=== PATIENT | female | born 1995 | race Caucasian/White ===

== ENCOUNTER 2024-11-28 18:54 | Outpatient (CLI) | payer BC, SELFPAY | END 2024-11-28 18:55 | disposition home or self-care (01) | LOC: AMB 12-02 11:51 | PROVIDERS: Visit Provider Family Medicine | DX: O26.891 Other specified pregnancy related conditions, first trimester (principal); R10.9 Unspecified abdominal pain; R11.10 Vomiting, unspecified; Z3A.08 8 weeks gestation of pregnancy | CPT/HCPCS: A0425; A0429 ==

== ENCOUNTER 2024-11-28 19:15 | Emergency (ER) | payer BC, SELFPAY ==
--- OUTSIDE RECORDS SUMMARY | 2024-11-28 19:16 | XMS_ITS | Clinical Summary ---
Author Organization [employer] [facility] [employer] [facility] Address [place], [place] [address] Care Team Providers Care Tin Recovery Worker Name Role Phone Vickie Harrison DO Primary Care Provider [phone] Allergies No known active allergies Medications multivitamin (MVI) tablet Take 1 tablet by mouth once daily. 0 06/14/2010 Active valACYclovir (VALTREX) 500 mg tabletIndicatio ns:HSV infection Take 1 tablet by mouth once daily. 90 tablet. 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/23/2018 Contraception management 02/04/2014 Immunizations Name Administration Dates Next Due COVID-19 vaccine (Moderna 100mcg/0.5mL) PF, MDV 02/07/2021,01/10/2021 DTaP 07/13/1999 HIB PRP-T (ActHIB,Hiberix) 11/26/1995,,1994,08/13 Hepatitis A (Adult) 08/26/2014 Hepatitis A (Peds) 02/04/2014 Hepatitis B (Peds) 11/26/1995,07/25/1995, 995 Human Papilloma Virus Vaccine 11/30/2008, 008,05/19/2008 Influenza, IIV4 10/23/2018 MENINGOCOCCAL VACCINE 2 VIAL 2MO-55YO (MENVEO) 02/04/2014 MMR 07/13/1999,11/26/1995 Meningococcal Vaccine (Menactra) 05/19/2008 Oral Polio Vaccine 07/13/1999, 5,1994,08/13 Td (Age >=7 Years) 10/23/2018 Tdap 04/17/2006 Typhoid (injectable) 12/22/2018 Family History Medical History Relation Name Comments Good Health Brother 3 Good Health Brother 4 Alcoholism Father Allergies Father Other Maternal Grandfather d, Cancer, age 84 Other Maternal Grandmother Romelia on's Allergies Mother Cancer-breast Mother 40s Cancer Paternal Grandfather d, lung cancer, age 50s Cancer-breast Paternal Grandmother age 58 Blood Disease No Family History Relation Name Status Comments Brother 1 Alive Brother 2 Alive Brother 3 Brother 4 Father Alive Maternal Grandfather Maternal Grandmother Mother Alive Paternal Grandfather Paternal Grandmother Social History Tobacco Use Types Packs/Day Years Used Date Smoking Tobacco: Never Smokeless Tobacco: Never Tobacco Cessation:Counseling Given: Yes Alcohol Use Standard Drinks/Week Comments Not Currently 0 (1 standard drink = 0.6 oz pur e alcohol) PHQ-2 Answer Date Recorded PHQ-2 TOTAL SCORE 0 09/30/2022 Social Connections Answer Date Recorded Frequency of Communication with Friends and Fami ly 0 03/12/2022 Financial Resource Strain Answer Date R ecorded Difficulty of Paying Living Expenses 3 03/12/2022 Difficulty of Paying Living Expenses Not on file 03/12/2022 Food Insecurity Answer Date Recorded Worried About Running Out of Food in the Last Ye ar 1 03/12/2022 Transportation Needs Answer Date Record ed Lack of Transportation (Medical) 1 03/12/2022 Housing Stability Answer Date Recorded Unable to Pay for Housing in the Last Year 1 03/12/2022 Comments No Sex and Gender Information Value Date Recorded Sex Assigned at Not on file Legal Sex Female 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 Gender Identity Not on file Sexual Orientation Not on file 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 on file Not on file Not on file Obstetrics History Para Term AB IAB SAB Ectopic Multiple Livin g Live Births 0 0 0 0 0 0 0 0 0 0 Last Filed Vital Signs Vital Sign Reading Time Taken Comments Blood Pressure 99/69 01/23/2023 9:49 AM CDT Pulse 84 01/23/2023 9:49 AM CDT Temperature 36.8 C (98.2 F) 01/23/2023 9:49 AM CDT Respiratory Rate 16 01/23/2023 9:49 AM CDT Oxygen Saturation 100% 01/23/2023 9:49 AM CDT Inhaled Oxygen Concentration - - Weight 62 kg (136 lb 11.2 oz) 01/23/2023 9:49 AM CDT Height 168.5 cm (5' 6.34) 01/23/2023 9:49 AM CD T Body Mass Index 21.84 01/23/2023 9:49 AM CDT Plan of Treatment Health Maintenance Due Date Last Done Comments HIV for age 15-65 2009 Hepatitis C screening for age 18-79 2012 Depression screening for age 12+ 09/30/2023 09/30/2022, 08/18/2020, 11/18/2018, Additional history exists Pap test for age 21-65 09/30/2023 , 09/30/2022, 09/03/2016 BMI (ht and wt on same day) for age 18+ 01/24/2024 01/23/2023, 09/30/2022, 08/18/2020, Additional history exists COVID-19 vaccine series ( season) 2024 10/16/2021, 02/07/2021, 01/10/2021 Influenza for age 9-49 06/20/2024 10/23/2018 Tetanus booster 10/23/2028 10/23/2018, 04/17/2006 Tdap Completed 04/17/2006 Pneumococcal series for age 6-49 Aged Out No longer eligible based on patient's age to complete this topic Procedures Procedure Name Priority Date/Time Associated Diagnosis Comments HPV HIGH RISK Routine 09/30/2022 9:28 AM FLIGHT TEST SUPERVISOR Cervical cancer screening from Last 3 Months or Most Recently Relevant to Health Maintenance Results * (ABNORMAL) HPV HIGH RISK (09/30/2022 9:28 AM FLIGHT TEST SUPERVISOR) TYPE 16 Negative Negative 10/02/2022 2:02 PM FLIGHT TEST SUPERVISOR [facility] TYPE 18 Negative Negative 10/02/2022 2:02 PM FLIGHT TEST SUPERVISOR [facility] OTHER HIGH RISK TYPES Positive(A) Negative 10/02/2022 2:02 PM FLIGHT TEST SUPERVISOR [facility] Other (Cervical) Non-Blood / Unknown 09/30/2022 9:28 AM FLIGHT TEST SUPERVISOR 10/01/2022 8:44 AM FLIGHT TEST SUPERVISOR Narrative [facility] - 10/02/2022 2:02 PM FLIGHT TEST SUPERVISOR Specimen is positive for the DNA of any one of, or combination of, the following high risk HPV types: 31, 33, 35, 39, 45, 51, 52, 56, 58, 59, 66, 68. HPV types 16 and 18 DNA were undetectable or below the pre-set threshold. Methodology: Summay[employer] 4800 HPV Test us Vickie Harrison DO MICROBIOLOGY Final Result [facility] [address] [place] [address], from Last 3 Months or Most Recently Relevant to Health Maintenance Insurance [facility] Care Teams Tin Recovery Worker Relationship Specialty Start Date End Date Vickie Harrison [place] [address] [place] [address] PCP - General Family Practice 03/05/22
[2024-11-28 19:20] VITALS: BP 105/77; PULSE 69; RESP 18; TEMP 36.6; O2SAT 97; BMI 23.8
--- OUTSIDE RECORDS SUMMARY | 2024-11-28 19:41 | XMS_ITS | Clinical Summary ---
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 Other (Cervical) Non-Blood / Unknown 09/30/2022 9:28 AM TABLE WORKER PACKAGER 10/01/2022 8:44 AM TABLE WORKER PACKAGER Narrative [facility] - 10/02/2022 2:02 PM TABLE WORKER PACKAGER Specimen is positive for the DNA of any one of, or combination of, the following high risk HPV types: 31, 33, 35, 39, 45, 51, 52, 56, 58, 59, 66, 68. HPV types 16 and 18 DNA were undetectable or below the pre-set threshold. Methodology: M2 [employer] 4800 HPV Test us Vickie Harrison DO MICROBIOLOGY Final Result [facility] [address] [place] [address], from Last 3 Months or Most Recently Relevant to Health Maintenance Insurance [facility] Care Teams Ob/Gyn Relationship Specialty Start Date End Date Vickie Harrison [place] [address] [place] [address] PCP - General Family Practice 03/05/22
--- NOTE | 2024-11-28 19:44 | CRLHL7_ITS ---
For Patients: As a result of the Century Cures Act, medical imaging exams and procedure reports are released immediately into your electronic medical record. You may view this report before your referring provider. If you have questions, please contact your health care provider. INDICATION: Abdominal pain. TECHNIQUE: Ultrasound OB pelvis transabdominal. Real-time briceno-scale imaging of the pelvis was performed. COMPARISON: None. FINDINGS: Intrauterine gestation: Single. heart activity (bpm): 165. [place]-rump length: 1.7 cm. Estimated ultrasound age: 8 weeks 0 days. NABEEL by ultrasound: 07/10/2025. Yolk sac: 3.4 mm. Perigestational hemorrhage: None. Ovaries and adnexa: Unremarkable. Suspicious pelvic fluid collections: None. IMPRESSION: Single viable intrauterine . No abnormalities seen. Dictated by Brenden Simmons MD @ 11/28/2024 9:08:06 PM (Electronically Signed)
[2024-11-28 20:05] LABS: Basophils Percent Auto 0.4 % (0.0-3.0); Hematocrit 36.5 % (33.0-51.0); Hemoglobin* 12.3 gm/dL (12.0-16.0); Immature Granulocytes Pct Auto 0.2 %; Lymphocytes Absolute Auto 3.24 K/uL (0.90-2.90); Lymphocytes Percent Auto 32.5 % (20-44); Mean Corpuscular HGB Conc 34 gm/dL (32-36); Mean Corpuscular Hemoglobin 30 pg (26-34); Mean Corpuscular Volume 89 fL (80-100); Monocytes Percent Auto 6.3 % (0.0-11.0); Neutrophils Absolute Auto 5.94 K/uL (1.7-7.0); Neutrophils Percent Auto 59.6 % (42.0-72.0); Platelet Count* 331 K/uL (140-440); RDW Coefficient of Variation % 12.5 % (11.5-15.5); Red Blood Count 4.11 m/uL (4.00-5.20); White Blood Count* 9.97 K/uL (4.50-11.00)
[2024-11-28 20:06] LABS: Basophils Absolute Auto 0.04 K/uL (0.00-0.30); Immature Granulocytes Abs Auto 0.02 K/uL (0.00-0.30)
[2024-11-28 20:07] LABS: Appearance Urine Clear (Clear); Bilirubin Urine Negative (Negative); Blood Urine Negative (Negative); Color Urine Yellow (Yellow); Glucose Urine Negative (Negative); Ketones Urine Negative (Negative); Leukocyte Esterase Urine Negative (Negative); Nitrite Urine Negative (Negative); Protein Urine Negative (Negative); Specific Gravity Urine 1.025 (1.000-1.030); Urobilinogen Urine 0.2 (0.2-1.0)
[2024-11-28 20:08] LABS: Slide Review Reflex No
[2024-11-28 20:15] LABS: Chloride* 101 mmol/L (96-114); Potassium* 3.5 mmol/L (3.6-5.1); Sodium* 136 mmol/L (135-149)
[2024-11-28 20:18] LABS: Anion Gap 8 mEq/L (7-15); Blood Urea Nitrogen* 7 mg/dL (5-24); Carbon Dioxide* 27 mmol/L (20-32); Creatinine* 0.4 mg/dL (0.5-1.5); Est. Creatinine Clearance* 185.05; Estimated Glomerular Filt Rate 136 ml/min
[2024-11-28 20:19] LABS: Calcium* 8.8 mg/dL (8.4-10.6); Glucose* 97 mg/dL (60-115)
--- NOTE | 2024-11-28 20:37 | ED_ITS ---
HPI - General Adult General Date Seen: 11/28/24 Chief complaint: Abdominal Pain Stated complaint: Abdominal pain Time Seen by Provider: 11/28/24 19:17 History of Present Illness HPI narrative: This is a pleasant 29-year-old female who is , currently 8 weeks , also with a history anxiety, but otherwise healthy. No previous abdominal surgical history. She presents to the ER today by EMS from home for severe abdominal pain History is obtained from the patient. She notes that she and her partner went on vacation last week to [place]. All they were in [place], stating at a bed and breakfast they both got sick with a GI illness including vomiting and diarrhea. She was quite sick 5 days ago on Friday with repetitive vomiting and greenish watery diarrhea. Her partner was so sick while in [place] that he had to go see the doctor. He apparently had an abnormal blood test and was put on antibiotics. He is doing much better since then. She notes that they came home early from their trip. About 2 days ago on Friday the diarrhea seemed just little fine she is now passing semi formed/semi firm greenish stools. Vomiting is improved. She was not running a fever for the past few days. This afternoon, at home she had sudden onset of fairly severe periumbilical and generalized episode of abdominal pain. It was quite intense and worse than any pain she had earlier this week with the diarrhea. She did not notice any vaginal bleeding or fluid leakage or tissue passage but is concerned that severe episode of pain might be representing a miscarriage. She also notes that she was not really feeling any ?uterine? cramping. The pain came in a severe wave in his tone improved down to 1/tubes over 10. She felt warm today and apparently during the painful episode she felt very hot so she took her clothes off. Her partner felt her and said that she felt palpably warm. She has not otherwise been running a fever. She was brought in by EMS. Her partner will be arriving by private car. Related Data Home Medications ?Medication ?Instructions ?Recorded ?Confirmed dextroamphetamine-amphetamine ER 1 cap PO QAM 05/27/24 05/27/24 10 mg 24hr capsule,extend release hydroxyzine HCl 50 mg tablet 50 mg PO QPM PRN insomnia 11/28/24 11/28/24 sertraline 50 mg tablet 50 mg PO DAILY 11/28/24 11/28/24 Allergies Allergy/AdvReac Type Severity Reaction Status Date / Time No Known Drug Allergies Allergy Verified 11/28/24 19:20 Exam Narrative: Exam Narrative: Constitutional: Appears well-developed and well-nourished. Alert. Conversant and provides a fairly detailed history. Non toxic. HENT: Head: Atraumatic. Nose: Nose normal. Mouth/Throat: Oral mucosa is clear and moist. no trismus. Pharynx normal. Tonsils symmetric. No tonsillar enlargement, erythema, or exudate. Eyes: Conjunctivae normal. EOM normal. Pupils equal, round, and reactive to light. No scleral icterus. Neck: Normal range of motion. Neck supple. No tracheal deviation present. Cardiovascular: Normal rate, regular rhythm. No gallop. No friction rub. No murmur heard. Symmetric radial artery pulses Pulmonary/Chest: Effort normal. No stridor. No respiratory distress. No wheezes. No rales. No rhonchi . No tenderness. Abdominal: Soft. Bowel sounds normal. No distension. No mass. Periumbilical tenderness. No rebound. No guarding. No suprapubic or right lower quadrant or left lower quadrant tenderness. No right upper quadrant tenderness. No left upward tenderness. No CVA tenderness. No hepatosplenomegaly. No Ruvalcaba sign Musculoskeletal: RUE: Normal range of motion. No tenderness. No deformity LUE: Normal range of motion. No tenderness. No deformity RLE: Normal range of motion. No edema. No tenderness. No deformity LLE: Normal range of motion. No edema. No tenderness. No deformity Neurological: Alert and oriented to person, place, and time. Normal strength. CN II-VII intact. No sensory deficit. GCS eye subscore is 4. GCS verbal subscore is 5. GCS motor subscore is 6. Normal coordination Skin: Skin is warm and dry. No rash noted. No pallor. Normal capillary refill. Psychiatric: Normal mood. Normal affect. Const: Vital Signs, click to edit/add: Vital Signs - 24 hr 11/28/24 19:20 Temperature 97.8 F Pulse Rate [Pulse Oximeter] 69 Respiratory Rate 18 Blood Pressure [Ri ght Upper Arm] 105/77 Pulse Oximetry 97 Oxygen Delivery Me thod Room Air Course Vital Signs Vital signs: Initial Vital Signs Temperature 97.8 F 11/28/24 19:20 Temperature Source Temporal Artery Scan 11/28/24 19:20 Pulse Rate 69 11/28/24 19:20 Respiratory Rate 18 11/28/24 19:20 Blood Pressure 105/77 11/28/24 19:20 Blood Pressure Mean 86 11/28/24 19:20 Blood Pressure Position Sitting 11/28/24 19:20 Pulse Oximetry 97 11/28/24 19:20 Oxygen Delivery Method Room Air 11/28/24 19:20 Vital Signs Temperature 97.8 F 11/28/24 19:20 Pulse Rate 69 11/28/24 19:20 Respiratory Rate 18 11/28/24 19:20 Blood Pressure 105/77 11/28/24 19:20 Pulse Oximetry 97 11/28/24 19:20 Oxygen Delivery Method Room Air 11/28/24 19:20 Temperature 97.8 F 11/28/24 19:20 Pulse Rate 69 11/28/24 19:20 Respiratory Rate 18 11/28/24 19:20 Blood Pressure 105/77 11/28/24 19:20 Pulse Oximetry 97 11/28/24 19:20 Oxygen Delivery Method Room Air 11/28/24 19:20 Medical Decision Making MDM Narrative Medical decision making narrative: This female patient presents for evaluation of an episode of severe generalized abdominal pain. She has had a recent GI illness that she contracted will traveling in [place] but overall her diarrhea and vomiting have been better for the past couple of days. She is also currently 8 weeks .. I considered a broad differential including ectopic , ovarian cyst, UTI, pyelonephritis, subchorionic hemorrhage, uterine bleeding, active miscarriage, constipation, etc. Non gynecologic causes considered included , gas pain, colitis, complication of GI infection appendicitis, cholecystitis, volvulus, intraabdominal abscess, among others. In this patient, there are no signs of serious etiologies of abdominal pain. The workup here shows an appropriately elevated quant. She is Rh positive. Pelvic ultrasound is reassuring and confirms a live IUP with size consistent with her LMP.. There is no subchorionic hemorrhage. At this point, patient is hemodynamically stable, hemoglobin is reassuring, and bleeding is not predicted to become life threatening. Plan is home, close follow-up with OB, threatened miscarriage precautions, and return to ED for worsening pain, heavy vaginal bleeding (more than 1 pad soaked every hour). Questions were answered. With her recent diarrhea and travel to [place], consider bacterial enteritis. However the diarrhea is actually been more solid for the past couple days. I had ordered a stool culture but she was not able to provided IS wrist simple here in the ER. Overall her severe wave of pain came and went and was improved while she was here in the ER. She is not requiring pain meds. At this point I do not think she needs advanced imaging with CT given low suspicion for appendicitis, colitis or other surgical cause of pain and the potential risk of radiation with her 1st trimester . Patient and her family agree. Plan will be watchful waiting at home. Return to the ER with worsening pain, fever, worsening diarrhea, or any other concerns. Otherwise recheck with PCP within 24-48 hours. Lab Data Labs: Lab Results 11/28/24 11/28/24 Range/Units 19:50 19:55 WBC 9.97 (4.50-11.00) K/uL RBC 4.11 (4.00-5.20) m/uL Hgb 12.3 (12.0-16.0) gm/dL Hct 36.5 (33.0-51.0) % MCV 89 (80-100) fL MCH 30 (26-34) pg MCHC 34 (32-36) gm/dL RDW Coeff of Jay 12.5 (11.5-15.5) % Plt Count 331 (140-440) K/uL Neut % (Auto) 59.6 (42.0-72.0) % Lymph % (Auto) 32.5 (20-44) % [place] % (Auto) 6.3 (0.0-11.0) % Eos % (Auto) 1.0 (0.0-7.0) % Baso % (Auto) 0.4 (0.0-3.0) % Neut # (Auto) 5.94 (1.7-7.0) K/uL Lymph # (Auto) 3.24 H (0.90-2.90) K/uL [place] # (Auto) 0.60 (0.00-0.90) K/UL Eos # (Auto) 0.10 (0.00-0.50) K/uL Baso # (Auto) 0.04 (0.00-0.30) K/uL Abs Immat Gran (auto) 0.02 (0.00-0.30) K/uL Imm/Tot Granulo (auto) 0.2 % Sodium 136 (135-149) mmol/L Potassium 3.5 L (3.6-5.1) mmol/L Chloride 101 (96-114) mmol/L Carbon Dioxide 27 (20-32) mmol/L Anion Gap 8 (7-15) mEq/L BUN 7 (5-24) mg/dL Creatinine 0.4 L (0.5-1.5) mg/dL Estimated Creat Clear 185.05 Estimated GFR 136 ml/min Glucose 97 (60-115) mg/dL Calcium 8.8 (8.4-10.6) mg/dL HCG, Quant 356018.00 mIU/mL Urine Color Yellow (Yellow) Urine Appearance Clear (Clear) Urine pH 7.0 (5.0-8.5) Ur Specific [place] 1.025 (1.000-1.030) Urine Protein Negative (Negative) Urine Glucose (UA) Negative (Negative) Urine Ketones Negative (Negative) Urine Blood Negative (Negative) Urine Nitrite Negative (Negative) Urine Bilirubin Negative (Negative) Urine Urobilinogen 0.2 (0.2-1.0) Ur Leukocyte Esterase Negative (Negative) Urine RBC 0-2 (0-2) Urine WBC 0-2 (0-5) Ur Squamous Epith Cells Few (None-Few) Urine Bacteria Few A (None) Blood Type A Positive Imaging Data US pelvic: Attestation: I have reviewed the pertinent imaging results. Radiologist's impression: IMPRESSION: Single viable intrauterine . No abnormalities seen. Discharge Plan Discharge Clinical Impression: Abdominal pain Patient Disposition: Home, Self-Care Condition: Stable Instructions: Abdominal Pain in (ED) Additional Instructions: As we discussed, please come back to the ER if you have more episodes of severe pain or any other concerning symptoms such as fever, uncontrolled vomiting, bloody or mucousy stool, worsening diarrhea. Please recheck with your regular doctor within 24-48 hours (or come back to the ER) unless you are completely improved. If you get worse, come back to the ER right away You can use Tylenol for mild pain. Drink plenty fluids and stay hydrated. Prescriptions: No Action dextroamphetamine-amphetamine 10 mg capsule,extended release 24hr 1 cap PO QAM hydroxyzine HCl 50 mg tablet 50 mg PO QPM PRN (Reason: insomnia) sertraline 50 mg tablet 50 mg PO DAILY Follow Up/Referrals: Provider,Not a Local [Primary Care Provider] - Stand Alone Forms: [employer] Info Instructions
[2024-11-28 20:45] LABS: Bacteria Urine Few; RBC Urine 0-2 (0-2); Squamous Epithelial Cell Urine Few (None-Few); WBC Urine 0-2 (0-5)
== END 2024-11-28 21:52 | disposition home or self-care (01) ==
PROVIDERS: Emergency Provider Emergency Medicine
DX: R10.9 Unspecified abdominal pain (principal); Z3A.08 8 weeks gestation of pregnancy
CPT/HCPCS: 36415; 76801; 80048; 81001; 84702; 85025; 86850; 86900; 86901; 87045; 87046; 87086; 87427; 99283

== ENCOUNTER 2024-12-10 13:46 | Outpatient (CLI) | payer BC, SELFPAY ==
--- NOTE | 2024-12-10 14:00 | CRLHL7_ITS ---
For Patients: As a result of the Cures Act, medical imaging exams and procedure reports are released immediately into your electronic medical record. You may view this report before your referring provider. If you have questions, please contact your health care provider. INDICATION: f/u viability, previous ER visit for abdominal pain/food poisoning COMPARISON: 11/28/2024 TECHNIQUE: Real-time briceno-scale imaging of the pelvis was performed. Transabdominal. FINDINGS: Sonographic imaging demonstrates a single living intrauterine gestation. The embryo demonstrates a regular cardiac rate measuring 159 beats per minute. The embryo`s crown-rump length measurement of 2.8 cm corresponds to a gestational age of 9 weeks 4 days with a sonographic due date of 07/11/2025. There is a normal-appearing yolk sac. There are no gross abnormalities noted within the embryo at this early state of development. The gestational sac has a normal appearance. There is no evidence of a perigestational hemorrhage. The amount of fluid within the sac appears appropriate for gestational age. The cervix is closed. The myometrium appears normal. The ovaries are of normal size. Corpus luteal cyst right ovary. There are no suspicious fluid collections noted in the cul-de-sac. IMPRESSION: Normal first trimester OB ultrasound exam. Gestational age calculated at 9 weeks 4 days with a sonographic due date of 07/11/2025. Dictated by Javon La MD @ 12/12/2024 6:53:45 AM (Electronically Signed)
== END 2024-12-10 13:47 | disposition home or self-care (01) ==
LOC: US 13:46
PROVIDERS: Visit Provider Advanced Practice Midwife
DX: Z34.91 Encounter for supervision of normal pregnancy, unspecified, first trimester (principal); Z3A.09 9 weeks gestation of pregnancy
CPT/HCPCS: 76801

== ENCOUNTER 2024-12-10 15:40 | Outpatient (CLI) | payer BC, SELFPAY | END 2024-12-10 15:41 | disposition home or self-care (01) | PROVIDERS: Visit Provider Advanced Practice Midwife | DX: Z34.01 Encounter for supervision of normal first pregnancy, first trimester (principal); Z67.10 Type A blood, Rh positive | CPT/HCPCS: 83020; 83021; 85660; 86592; 86703; 86704; 86706; 86762; 86787; 86803; 86850; 86900; 86901; 87086; 87340 ==

== ENCOUNTER 2025-01-04 14:24 | Outpatient (CLI) | payer BC, SELFPAY ==
[2025-01-04 20:16] LABS: Chlamydia DNA Amplified* NOT DETECTED (No Detected); GC DNA Amplified* NOT DETECTED (No Detected)
[2025-01-06 14:46] LABS: HPV Source Cervical; HPV, High Risk by TMA Not Detected
== END 2025-01-04 14:25 | disposition home or self-care (01) ==
PROVIDERS: Visit Provider Advanced Practice Midwife
DX: Z34.01 Encounter for supervision of normal first pregnancy, first trimester (principal)
CPT/HCPCS: 87491; 87591; 87624; 87625; 88141; 88142

== ENCOUNTER 2025-02-23 09:07 | Outpatient (CLI) | payer BC, SELFPAY | END 2025-02-23 09:08 | disposition home or self-care (01) | LOC: US 09:07 | PROVIDERS: Visit Provider Advanced Practice Midwife | DX: O09.892 Supervision of other high risk pregnancies, second trimester (principal); Z82.79 Family history of other congenital malformations, deformations and chromosomal abnormalities; Z3A.19 19 weeks gestation of pregnancy | CPT/HCPCS: 76811 ==

== ENCOUNTER 2025-04-25 12:33 | Outpatient (CLI) | payer BC, SELFPAY | END 2025-04-25 12:34 | disposition home or self-care (01) | LOC: NFLDREF 04-28 02:24 | PROVIDERS: Visit Provider Advanced Practice Midwife | DX: Z34.93 Encounter for supervision of normal pregnancy, unspecified, third trimester (principal); Z3A.28 28 weeks gestation of pregnancy | CPT/HCPCS: 86592 ==

== ENCOUNTER 2025-06-21 03:08 | Inpatient (IN) | payer BC, SELFPAY ==
[2025-06-21] VITALS (66 sets, daily range): BP systolic 82–145; BP diastolic 43–86; PULSE 61–214; RESP 16–18; TEMP 36.3–37.2; O2SAT 89–100
[2025-06-21 02:42] LABS: Amnisure Rom* POSITIVE
--- NOTE | 2025-06-21 03:11 | P.LDBA_ITS ---
Subjective History of Present Illness Narrative: Patient is being admitted to Labor and Delivery for []. She is a 30 year old at weeks gestation. Her full history and physical was dictated by [] on []. Please see this for details. [] Specific Issues/Plans Beau-partner, it's a boy. 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 # FOB with bicuspid aortic valve. Had heart surgery at age 11. FOB's father also had this condition Will have level 2 US in [place]-normal echo recommended: normal findings on 04/06/25 # ADHD, anxiety and depression. On hydroxyzine and sertraline. Stopped Adderall for ADHD with +UPT. # Hx genital herpes. Prophylaxis at 36 wks. Rx sent, verify she has started at 36 week visit. Ultrasound: 02/24/2025 Level II Anatomy Scan with MFM Impression: 1. Christiansen at 19w6d gestational age LMP c/w 8 week US. 2. No anomalies commonly detected by ultrasound were identified in the detailed anatomic survey within the limits of ultrasound. 3. Growth parameters and estimated weight were consistent with gestational age predicted by assigned NABEEL. 4. The amniotic fluid volume appeared normal. 5. On transabdominal imaging the cervix appeared long and closed. echo recommended. COVID: initial series, boosted 1 time Flu: declined TDAP: 05/23/2025 32wk Mental Health: 05/23/2025 PHQ-9= 2 JORDIN-7=2 34wk Hgb: OB Exam Physical Exam Vital signs: Temp Pulse Resp BP 98.2 F 69 16 127/75 06/21/25 02:33 06/21/25 02:33 06/21/25 02:33 06/21/25 02:33 Detailed Labor and Delivery Exam Dilation (cm): 7 Effacement (%): 90 Fetus (Single) Station: 0
--- NOTE | 2025-06-21 04:02 | P.OBHP_ITS ---
OB - H&P: HPI Labor/Induction History of Present Illness Date Seen: 06/21/25 Chief Complaint: Dawn is a 30 year old 1 para 0 at 36.5 weeks gestation by LMP, who presents with SROM. SROM with clear fluid around 0100. Shortly after she began sena and they increased in frequency and intensity. On arrival she began to contract uncomfortably. She had initially was requesting to go home to labor but after a discussion about the risks and given her increasing contraction p attern and intensity she was readily agreeable to staying for delivery. 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 Chief complaint: Maternity : 1 Para: 0 Date of last menstrual period: 10/07/24 Estimated date of delivery: 07/14/25 Gestational age based on last menstrual period: 36 Narrative: Dawn Bah is a 30 year old female Specific Issues/Plans Beau-partner, it's a boy. 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 # FOB with bicuspid aortic valve. Had heart surgery at age 11. FOB's father also had this condition Will have level 2 US in [place]-normal echo recommended: normal findings on 04/06/25 # ADHD, anxiety and depression. On hydroxyzine and sertraline. Stopped Adderall for ADHD with +UPT. # Hx genital herpes. Prophylaxis at 36 wks. Rx sent, verify she has started at 36 week visit. Ultrasound: 12/12/24: Normal first trimester OB ultrasound exam. Gestational age calculated at 9 weeks 4 days with a sonographic due date of 07/11/2025. 02/24/2025 Level II Anatomy Scan with MFM Impression: 1. Christiansen at 19w6d gestational age LMP c/w 8 week US. 2. No anomalies commonly detected by ultrasound were identified in the detailed anatomic survey within the limits of ultrasound. 3. Growth parameters and estimated weight were consistent with gestational age predicted by assigned NABEEL. 4. The amniotic fluid volume appeared normal. 5. On transabdominal imaging the cervix appeared long and closed. echo recommended. 04/06/25: Echo, WNL with no major cardiac abnormalities. COVID: initial series, boosted 1 time Flu: declined TDAP: 05/23/2025 32wk Mental Health: 05/23/2025 PHQ-9= 2 JORDIN-7=2 34wk Hgb: History of Present Dating criteria: based on LMP care: good care Ultrasounds: normal 1st trimester US, normal mid trimester US and other (normal Echo) Medical complications: none Labs Blood type: A (+) positive Rubella: immune RPR/VDLR: nonreactive GBS status: unknown HBsAG: negative Meds Home Medications and Allergies Home Medications ?Medication ?Instructions ?Recorded ?Confirmed ?Type hydroxyzine HCl 50 mg tablet 50 mg PO QPM PRN insomnia 11/28/24 06/21/25 History sertraline 50 mg tablet 50 mg PO DAILY 11/28/2412/14 History vits 168-iron 27 mg-folic 1 cap PO DAILY 11/2106/21/25 History acid 800 mcg-omega3 235 mg capsule (One-A-Day -1) Saccharomyces boulardii 250 mg 250 mg PO BID 01/17/25 06/21/25 History capsule (Daily Probiotic (S. boulardii)) cholecalciferol (vitamin D3) 50 50 mcg PO QDAY 5 06/21/25 History mcg (2,000 unit) capsule omega 5-kgx-zwt-fish oil 100 1 cap PO DAILY 01/17/25 0 06/21/25 History mg-160 mg-1,000 mg capsule (Fish Oil) gabapentin 100 mg capsule 100 mg PO QHS PRN 03/29/25 0 06/21/25 History magnesium citrate 100 mg capsule 100 mg PO QDAY 06/21/25 History valacyclovir 500 mg tablet 500 mg PO BID #60 tabs 05/2106/21/25 Rx Held on 06/21/25. Instructions: not taking Allergies Allergy/AdvReac Type Severity Reaction Status Date / Time No Known Drug Allergies Allergy Verified 06/08/25 14:07 OB - H&P: Exam Physical Exam: Vital signs: Temp Pulse Resp BP 98.2 F 69 16 127/75 06/21/25 02:33 06/21/25 02:33 06/21/25 02:33 06/21/25 02:33 Narrative: Psychiatric:? Alert and oriented x3? HEENT:? Normocephalic, atraumatic? Neck:? Supple without adenopathy or thyromegaly? Lungs:? Clear to auscultation bilaterally? Heart:? Regular rate and rhythm, no murmur, rub or gallop? Abdomen:? Soft, nontender, and gravid? Extremities:? No edema or erythema? OB - Problem Based A/P Additional Plan (1) Pain during labor: Status: Acute (2) labor: Status: Acute (3) ADHD: Problem details: stopped Adderall with +UPT Status: Acute (4) Anxiety and depression: Status: Acute (5) Hx of herpes genitalis: Status: Acute (6) SROM (spontaneous rupture of membranes): Status: Acute Plan ASSESSMENT:? at 36.5 weeks gestation? GBS unknown, pending? complicated by: Hx genital herpes, ADHD, anxiety/depression Blood type:?A+ ? PLAN:? 1. Antibiotic prophylaxis treatment per protocol given unknown GBS status. Declines. Will review again with prolonged ROM. 2. Candidate for analgesia of choice. Planning unmedicated . Desired water but unable due to gestational age. 3. Anticipate ? 4. Expectant management at this time.? 5. Declines IV. Will review and encourage again if patient condition changes. 6. Continuous monitoring due to gestational age. Delivery/Labor/Induction Plan Plan: expectant management
[2025-06-21] MEDS: ONDANSETRON ODT 4 MG TAB PO (04:34)
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
--- NOTE | 2025-06-21 13:35 | P.OBPN_ITS ---
Subjective Time Seen by Provider: 12:30 Date Seen: 06/21/25 Narrative: Dawn is a 30 year old 1 para 0 at 36.5 weeks gestation by LMP, who presents with PROM of clear fluid that occurred at 0100. She began sena shortly after with increasing intensity and frequency. Amnisure was positive on arrival and she has continued to leak clear/pink tinged fluid. Her SVE at 3 am was 7 cm. She is supported in labor by her partner, Lanre, her title curator, Veronica, and photographer still. Patient has been more vocal and active sounding in her labor. She has continued to attempt many different labor positions to facilitate optimal positioning and encourage labor progression. She has declined cervical exams by RN as CNM was occupied in another room. She was beginning to feel increased rectal pressure and occasionally bearing down with peak of contraction. CNM at bedside and encouraged SVE to reassess plan and determine if there has been progress. She was open to this but does not tolerate cervical exams well. She was able to use nitrous during exam. Patient have a difficult ti me even with nitrous relaxing her pelvis. I fear she has an inability to relax her pelvic floor during contractions and may prevent the decent of the fetus if she is unable to cope. Objective Exam: Constitutional: Alert and oriented x3, moderate distress, coping well Vital signs stable, see nurse documentation Abdomen: gravid, contractions palpate moderate/strong with contractions and soft between Cervix: 7 cm/90%/0 station/vertex;very difficult exam due to patient intolerance NST: 120 bpm/moderate variability/15x15 accelerations/no decelerations/contractions every 2-4 minutes Vital Signs: Last Vital Signs Temp 97.3 F L 06/21/25 10:50 Pulse 80 06/21/25 10:50 Resp 16 06/21/25 10:50 BP 120/81 06/21/25 10:50 Pulse Ox 100 06/21/25 11:39 Plan Plan: ASSESSMENT:? 30 yo at 36.5 weeks gestation? complicated by:? Labor type: Spontaneous, Active labor? Protracted active labor phase Category 1 FHR pattern.?? Labor complicated by: genital herpes, ADHD, anxiety/depression? GBS unknown, pending? Blood type:?A+ PLAN:? 1. Routine intrapartum cares as ordered. Reviewed labor status with patient and discussed unchanged SVE over 9+ hours. Recommend IV pitocin at this time due to labor status. Discussed plan with patient in detail and again with title curator. We also discussed option of epidural to help with her ability to relax. She declines any intervention at this time. She is aware of increased risk of infection and risk for her and baby when we are unchanged over many hours. She would like time to review with her title curator and make a plan. 2. Monitoring per policy, continuous with gestational age? 3. Planning unmedicated . Candidate for analgesia of choice if desired. 4. Patient encouraged to reposition and ambulate to promote physiologic labor and .? 5. GBS prophylaxis declined by patient. She is recommended prophylaxis due to and no GBS on file. GBS was collected and pending. 6. Anticipate ?
--- NOTE | 2025-06-21 14:15 | PM.EN ---
Chart Event Note Time Seen by Provider: 14:00 Date Seen: 06/21/25 Chart Event Note: Lynn is still laboring. She had decided to get into the tub. She has not decided about pitocin or other options and declines to discuss further at this time. Will attempt when patient has exited the tub and review risk/benefits of not starting pitocin at this time.
--- NOTE | 2025-06-21 15:52 | PM.OBPNL ---
Subjective Time Seen by Provider: 15:00 Date Seen: 06/21/25 Narrative: Dawn is a 30 year old 1 para 0 at 36.5 weeks gestation by LMP, who presents with PROM of clear fluid that occurred at 0100. She began sena shortly after with increasing intensity and frequency. Amnisure was positive on arrival and she has continued to leak clear/pink tinged fluid. Her SVE at 3 am was 7 cm. The patient has remained unchanged. She was recommended pitocin vs. pain management and has declined. CNM at team at bedside again to discuss options and make a plan. Patient (Lynn) is vocal with low moans and pushing grunts with peak of contractions, reports feeling increased pressure. Patient continues to be hesitant of intervention, particularly pitocin. Currently positioned on the birthing stool with partner behind for support. Has been doing many position changes and counter pressure with team. KHANH Mascorro Objective Exam: Constitutional: Alert and oriented x3, moderate distress, coping Vital signs stable, see nurse documentation Abdomen: gravid, contractions palpate moderate/strong with contractions and soft between Cervix: unchanged Vital Signs: Last Vital Signs Temp 98.0 F 06/21/25 14:15 Pulse 80 06/21/25 10:50 Resp 16 06/21/25 14:15 BP 109/73 06/21/25 14:15 Pulse Ox 100 06/21/25 14:56 Pelvic Exam Dilation (cm): 7 Effacement (%): 90 Station: 0 Comments: unchanged Contractions Contraction Frequency: 3-5 min Contraction pattern: Regular Assessment Assessment: active labor Station: 0 Amniotic Membrane Status: SROM Status: Category l Heart Rate Baseline: 125 Residential Variability: Moderate (6-25) Monitor Accelerations: Present Monitor Decelerations: None Maternal Status: Acknowledges fatigue Plan Plan: ASSESSMENT:? 30 yo at 36.5 weeks gestation? complicated by:?genital herpes, ADHD, anxiety/depression Labor type: Spontaneous, Active labor? Category 1 FHR pattern.?? Labor complicated by: ?Protracted active labor phase GBS unknown, pending? Blood type:?A+ PLAN:? 1. Routine intrapartum cares as ordered. Reviewed labor status with patient and discussed unchanged SVE over 12+ hours. Again, recommend IV pitocin at this time due to protracted labor, , and maternal fatigue. Discussed plan with patient in detail and again with dairy management specialist. We also discussed option of epidural to help with her ability to relax. She declines any intervention at this time. She is aware of increased risk of infection and risk for her and baby when we are unchanged over many hours. She would like time to review with her dairy management specialist and make a plan. 2. Monitoring per policy, continuous with gestational age? 3. Planning unmedicated . Candidate for analgesia of choice if desired. 4. Patient encouraged to reposition and ambulate to promote physiologic labor and .? 5. GBS prophylaxis declined by patient. She is recommended prophylaxis due to and no GBS on file. GBS was collected and pending. 6. Anticipate ? I,?Sarah Recio APRN, RADHA, was present for visit and have reviewed and agree with documentation by the Certified Nurse Midwifery Student.
[2025-06-21] MEDS: LACTATED RINGERS 1000 ML 1,000 ML 999 ML IV (16:14)
[2025-06-21 16:31] LABS: Hematocrit 38.4 % (33.0-51.0); Hemoglobin* 13.0 gm/dL (12.0-16.0); Immature Granulocytes Pct Auto 0.3 %; Mean Corpuscular HGB Conc 34 gm/dL (32-36); Mean Corpuscular Hemoglobin 30 pg (26-34); Mean Corpuscular Volume 87 fL (80-100); RDW Coefficient of Variation % 13.0 % (11.5-15.5); Red Blood Count 4.41 m/uL (4.00-5.20); White Blood Count* 19.21 K/uL (4.50-11.00)
[2025-06-21 16:32] LABS: Immature Granulocytes Abs Auto 0.10 K/uL (0.00-0.30); Lymphocytes Absolute Auto 1.30 K/uL (0.90-2.90); Slide Review Reflex No
[2025-06-21] MEDS: ROPIVACAINE 0.2% 100 ml 100 ML 12 MG EPIDURAL (17:02)
[2025-06-21] MEDS: LIDOCAINE 2% (PF) 5 ML VIAL EPIDURAL (17:03)
--- NOTE | 2025-06-21 17:12 | PM.ANBPRC ---
[facility] Medical History Herpes genitalia ?A60.00 - Herpesviral infection of urogenital system, unspecified (ICD-10) Depression ?F32.A - Depression, unspecified (ICD-10) Surgical History [place] teeth extracted ?K08.409 - Partial loss of teeth, unspecified cause, unspecified class (ICD-10) H/O eye surgery ?Z98.890 - Other specified postprocedural states (ICD-10) Family History Mother Breast cancer, Onset Age: 40 Father Alcohol dependence Maternal Grandmother Parkinson disease Maternal Grandfather Prostate cancer, Onset Age: 84 Paternal Grandmother Breast cancer, Onset Age: 58 Paternal Grandfather Lung cancer, Onset Age: 50 Brother Schizophrenia Social History Narrative: SOCIAL Education: bachelors Work: [employer] Partner: Lanre, partner real estate operations manager at [employer] Lives with: partner and dad Pets: dog Abuse: Denies past Special Diet: Denies Ok with a blood transfusion: yes Culture or sikh beliefs: denies RISK FACTORS Exercise Times/wk: walk daily Depression/Anxiety: ADHD, anxiety, depression. Feels stable on current medications. Stopped Adderall with +UPT JORDIN: 2 PHQ 9: 4 Seat Belt Use: Routinely Smoking: Denies past/present Alcohol/day: Denies while Caffeine: 1-2 cup Drug Use: Denies past/present Chicken Pox: Immunized MRSA: Denies What is your current living situation?: I presently have a place to live Problems where you live: no known problems In the past 12 months, utilities in danger of being shut off: no In past 12 months, lack of transportation kept you from medical appts, meetings, work, or getting things needed for daily living: no In the past 12 mos, have been you worried that your food would run out before you had money to buy more?: never true In the past 12 mos, the food you bought just didn't last and you didn't have money to buy more?: never true Smoking Status: Never smoker How often does anyone, including family, friends and others, physically hurt you: never How often does anyone, including family, friends and others, insult or talk down to you: never How often does anyone, including family, friends and others, threaten you with harm: never How often does anyone, including family, friends and others, scream or curse at you: never Meds Home Medications and Allergies Home Medications ?Medication ?Instructions ?Recorded ?Confirmed ?Type hydroxyzine HCl 50 mg tablet 50 mg PO QPM PRN insomnia 11/28/24 06/21/25 History sertraline 50 mg tablet 50 mg PO DAILY 11/28/24 06/21/25 History vits 168-iron 27 mg-folic 1 cap PO DAILY 12/10/24 06/21/25 History acid 800 mcg-omega3 235 mg capsule (One-A-Day -1) Saccharomyces boulardii 250 mg 250 mg PO BID 01/17/25 06/21/25 History capsule (Daily Probiotic (S. boulardii)) cholecalciferol (vitamin D3) 50 50 mcg PO QDAY 01/17/25 06/21/25 History mcg (2,000 unit) capsule omega 5-qvx-khl-fish oil 100 1 cap PO DAILY 01/17/25 06/21/25 History mg-160 mg-1,000 mg capsule (Fish Oil) gabapentin 100 mg capsule 100 mg PO QHS PRN 03/29/25 06/21/25 History magnesium citrate 100 mg capsule 100 mg PO QDAY 03/29/25 06/21/25 History valacyclovir 500 mg tablet 500 mg PO BID #60 tabs 06/08/25 06/21/25 Rx Held on 06/21/25. Instructions: not taking Allergies Allergy/AdvReac Type Severity Reaction Status Date / Time No Known Drug Allergies Allergy Verified 06/08/25 14:07 Results Labs Labs: Laboratory Results - last 24 hr 06/21/25 06/21/25 02:38 16:14 WBC 19.21 H RBC 4.41 Hgb 13.0 Hct 38.4 MCV 87 MCH 30 MCHC 34 RDW Coeff of Jay 13.0 Plt Count 249 Neut % (Auto) 89.3 H Lymph % (Auto) 6.6 L Mitchell % (Auto) 3.7 Eos % (Auto) 0.0 Baso % (Auto) 0.1 Neut # (Auto) 17.20 H Lymph # (Auto) 1.30 Mitchell # (Auto) 0.70 Eos # (Auto) 0.00 Baso # (Auto) 0.00 Abs Immat Gran (auto) 0.10 Imm/Tot Granulo (auto) 0.3 Membrane Rupture POSITIVE Vital Signs Vital Signs: Last Vital Signs Temp 98.0 F 06/21/25 14:15 Pulse 83 06/21/25 17:12 Resp 16 06/21/25 14:15 BP 103/59 L 06/21/25 17:12 Pulse Ox 100 06/21/25 17:10 Anesthesia Procedures Epidural Insertion Patient Location: OB Start Time: 16:30 Stop Time: 17:30 Start Date: 06/21/25 Stop Date: 06/21/25 Reason for Block: primary anesthetic Patient Position: sitting Performed By: Corona Bhatti Preanesthetic Checklist: IV checked, risks and benefits discussed, surgical consent, monitors and equipment checked, pre-op evaluation, timeout performed and anesthesia consent Prep: chlorhexidine gluconate Monitoring: blood pressure monitoring, satellite project site monitor, continuous pulse oximetry and heart rate Approach: midline Vertebral Space: lumbar (1-5) Needle Type: Tuohy needle Injection Technique: continuous catheter Needle gauge: 17 Needle Length (cm): 10 cm Needle Insertion Depth (cm): 6 Catheter Gauge: 19 Catheter Type: multi-orifice Catheter at skin depth (cm): 12 Test Dose Result: negative and lidocaine 1.5% with epinephrine 1 to 200,000 Events: other
[2025-06-21] MEDS: LACTATED RINGERS 1000 ML 1,000 ML 500 ML IV (17:15)
[2025-06-21] MEDS: PHENYLEPHRINE 100 MCG/ML SYRINGE IVP (19:21)
[2025-06-21] MEDS: ONDANSETRON 2 MG/ML inj 4 MG IV (19:52)
[2025-06-21] MEDS: lidocaine HCL 2 % JELLY (TOP) STERILE 6 ML TOPICAL (21:30)
[2025-06-21] MEDS: LACTATED RINGERS 1000 ML 1,000 ML 525 ML IV (21:41)
[2025-06-21] MEDS: MAG HYDROX/ALUMINUM HYD/SIMETH 30 ML ORAL.SUSP PO (22:40)
[2025-06-21 22:41] LABS: Strep B DNA Probe Negative (Negative)
[2025-06-22] VITALS (22 sets, daily range): BP systolic 93–136; BP diastolic 51–79; PULSE 74–118; RESP 16–18; TEMP 36.6–37.4; O2SAT 96–99
[2025-06-22] MEDS: ROPIVACAINE 0.2% 100 ml 100 ML 12 MG EPIDURAL
[2025-06-22] MEDS: lidocaine HCL 2 % JELLY (TOP) STERILE 6 ML TOPICAL (00:26)
[2025-06-22 00:32] LABS: Strep B Susceptibility Needed? No
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
[2025-06-22] MEDS: OXYTOCIN 30 unit/500 ML in NS 30 UNIT/500 ML BAG 300 UNIT IVPB (02:16)
--- NOTE | 2025-06-22 02:46 | W.PM.VAGDE_ITS ---
OB Procedure Vag Delivery Mother Details Mother Details: The patient is a 30 year-old, 1, Para 1, admitted on 06/21/25 at 36w5d gestation for PPROM clear fluid. : 1 Para: 1 Weeks Gestation: 36.5 Admission Date: 06/21/25 Additional Details Amniotic Membrane Status: SROM Amniotic Membrane Rupture Date: 06/21/25 Amniotic Membrane Rupture Time: 01:00 Amniotic Membrane Fluid Description: Clear Analgesia/Anesthesia Type: Epidural Waterbirth: No Pitcoin: Yes Intrapartal Events: Excessive Bleeding, ROM >18 Hours, Prolonged Labor >20 Hrs and Prolonged 2nd Stage >2.5 Hrs Labor Onset: 01:00 Complete: 20:10 Pushin:04 Heart: heart tones during second stage were category 1 and 2. Moderate variability and good recovery after contractions. Delivery Details Delivery Date: 06/22/25 Delivery Time: 01:52 Route of delivery: vacuum extraction Gender: Male Infant Viability: Alive; Heart Rate Present Position at Delivery: OP Delivery Details: Dawn was admitted for PPROM of clear fluid. 7cm on admission. She did many po sition changes with or assistant and partner and staff throughout the day. Utilized the tub, music, nitrous oxide, counter pressure, massage, and eventually epidural for pain management. She had declined augmentation multiple times throughout the day. She did get a short rest after epidural. Cervix remained unchanged for about 16 hours despite position changes, nipple stim, and tub. She was complete at 2009 after anterior cervical lip was reduced by it integration architect and started pushing. Lynn has very strong pelvic floor tone. She often pulled away from pushing and needed much guidance and support to get through fear. She dealt with reflux throughout labor, throwing up at the start of most contractions. Zofran, maalox, and tums minimally effective. After 4.75 hours of pushing baby had made descent but not yet past the pubic bone. Dr. Ohara consulted for assessment of position and possible vacuum assist. Baby tolerating labor well but mother fatigued and consented to use of the vacuum. Dr Ohara assumed care for vacuum. First vacuum attempt at 0104 which popped off. Two more pulls done which brought baby to small crown. Care was returned to CNM team for continued pushing with . Patient then pushed for another 40 minutes to deliver baby vaginally. Tight hymenal ring was present and causing restriction, massaged to help with stretching. Viable male infant born at 0152 in OP. No nuchal cord or shoulder. Body delivered easily and without incident. Infant passed to mothers abdomen with a vigorous cry. Cord was clamped and cut at > 5 minutes. APGARS were 8 at one minute and 9 at five minutes respectively. Mouth was bulb suctioned. Intact placenta with a 3 vessel cord delivered spontaneously at 0212. Fundus firm. 1st degree identified and repaired in typical fashion. Right labial abrasion related to hymenal band. QBL 1100 cc. Patient initially declined AMTSL however due to large gush of blood and continued trickling IV pitocin was recommended and accepted. Mother and baby stable; mother plans to breastfeed. weight 3160g. Hoop Coiling Machine Operator and partner and accounts payable clerk present throughout. Patient had declined GBS treatment for GBS unknown status in the setting of . GBS resulted this am and was negative. 1 Minute Interval Total Score: 8 5 Minute Interval Total Score: 9 Additional Details Shoulder Dystocia: No Placenta Delivery Time: 02:12 Placental Delivery Description: Spontaneous Delivery repair: Vicryl Procedure Done: Global Blood Loss: 1,100 Laceration: Perineal - 1st Degree (R labial abrasion) Episiotomy Description: None Blood Loss Measurement Type: QBL Bakri Used: No Sponge/Need Count Correct: Yes Cord Vessel Description: 3 Vessels Indication for instrumentation: maternal exhaustion Event Summary Status: Mother and infant were stable after delivery. Disposition: floor
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
[2025-06-22] MEDS: IBUPROFEN 600 MG TABLET PO ×3 (04:52→23:58)
--- NOTE | 2025-06-22 11:02 | PM.ANPOST ---
Post Anesthesia Note Post Anesthesia Note Patient seen: Inpatient Respiratory Status: adequate Cardiovascular Status: adequate Mental Status: baseline Pain: adequate Temp: baseline Anesthetic awareness: N/A Complications: none Follow care: none
[2025-06-22] MEDS: ACETAMINOPHEN 500 MG TABLET 1000 MG PO ×2 (11:14→18:11)
[2025-06-22] MEDS: SERTRALINE 50 MG TABLET PO (11:15)
[2025-06-22] MEDS: DOCUSATE SODIUM 100 MG CAPSULE PO (11:15)
[2025-06-23 04:12] VITALS: BP 99/63; PULSE 66; RESP 16; TEMP 36.5; O2SAT 97
[2025-06-23] MEDS: ACETAMINOPHEN 500 MG TABLET 1000 MG PO ×2 (04:28→14:30)
[2025-06-23 08:08] LABS: Hemoglobin* 8.8 gm/dL (12.0-16.0)
[2025-06-23] MEDS: IBUPROFEN 600 MG TABLET PO ×2 (08:15→18:56)
[2025-06-23] MEDS: DOCUSATE SODIUM 100 MG CAPSULE PO (08:16)
--- NOTE | 2025-06-23 08:34 | PM.OBPNVD1 ---
OB - PN:Subj Subjective Date Seen: 06/23/25 Narrative: Dawn is a 30 y.o. who was admitted to [facility] & [facility] for PPROM. ?She had an Vacuum assisted vaginal for protracted 2nd stage and maternal fatigue.?She then had a PP hemorrhage that was treated with medications effectively. The patient feels well. ?The pain is well controlled with current medications. ?She has no new complaints. ?She is breast feeding and reports she is needing to pump and spoon feed.? the patient has done well.? Vitals have been stable.? She has remained afebrile.? Has a good appetite, is tolerating a general diet. ?She is voiding without difficulty.? She is passing gas and has not had a bowel movement.? She is ambulating and denies any dizziness.? Has scant amount of rubra lochia. ? OB - PN: Obj Exam Physical Exam: Vital signs: Temp Pulse Resp BP Pulse Ox O2 Del Method 97.7 F 66 16 99/63 97 Room Air 06/23/25 04:12 06/23/25 04:12 06/23/25 04:12 06/23/25 04:12 06/23/25 04:12 06/23/25 04:12 Narrative: GENERAL APPEARANCE:? normal affect, alert, no distress MOOD:? appropriate CHEST:? clear to auscultation HEART:? regular rate and rhythm ABDOMEN:? soft, non-tender the uterine fundus is At Umbilicus, Midline and is appropriate for the stage of recovery. PERINEUM:? deferred as patient is pumping EXTREMITIES:? normal and minimal edema OB - PN: Obj Data Labs Labs: Laboratory Results - last 24 hr 06/23/25 07:50 Hgb 8.8 L OB - PN: A/P Delivery Assessment and Plan (1) Vacuum-assisted vaginal delivery: Status: Acute (2) ADHD: Problem details: stopped Adderall with +UPT Status: Acute (3) Anxiety and depression: Status: Acute (4) Hx of herpes genitalis: Status: Acute (5) premature rupture of membranes (PPROM) delivered, current hospitalization: Status: Acute (6) delivery: Status: Acute (7) First degree perineal laceration: Status: Acute (8) hemorrhage: Status: Acute (9) care and examination of lactating mother: Status: Acute Plan Comments: PP day #1 Routine care Hgb 8.8 May see as desired Anticipate discharge 06/24/2025
[2025-06-23 17:02] VITALS: BP 118/76; PULSE 65; RESP 18; O2SAT 95
--- NOTE | 2025-06-23 19:58 | P.DS_ITS ---
DS: Providers Provider Date Seen: 06/23/25 Date of admission: 06/21/25 03:08 Primary care physician: Not a Local Provider Admitting Clinician: Edda Neumann CNM Consults: 06/22/25 02:56 Consult to Physician [CONS] Routine Comment: Consulting Provider: Melvina Ohara Has provider been notified: Yes Attending Physician on discharge: Mercy GARCIA Date of Discharge: 06/23/25 DS: Diagnosis Discharge Diagnosis (1) care and examination of lactating mother: Status: Acute (2) hemorrhage: Status: Acute (3) First degree perineal laceration: Status: Acute (4) Vacuum-assisted vaginal delivery: Status: Acute (5) delivery: Status: Acute (6) premature rupture of membranes (PPROM) delivered, current hospitalization: Status: Acute Exam Narrative: Exam Narrative: GENERAL APPEARANCE:? normal affect, alert, no distress MOOD:? appropriate CHEST:? clear to auscultation HEART:? regular rate and rhythm ABDOMEN:? soft, non-tender the uterine fundus is At Umbilicus, Midline and is appropriate for the stage of recovery. PERINEUM:? mild edema of the perineum, there is a Perineal Laceration,? with no erythema, well approximated EXTREMITIES:? normal and mild edema : Const: Vital Signs, click to edit/add: Vital Signs - 24 hr 06/22/25 20:01 06/22/25 23:44 06/23/25 04:12 Temperature 98.2 F 97.9 F 97.7 F Pulse Rate [Pulse Oximeter] 74 79 66 Respiratory Rate 16 16 16 Blood Pressure [Le ft Arm] 107/68 98/66 99/63 Pulse Oximetry 97 97 97 Oxygen Delivery Me thod Room Air Room Air Room Air 06/23/25 17:02 Temperature Pulse Rate [Pulse Oximeter] 65 Respiratory Rate 18 Blood Pressure [Le ft Arm] 118/76 Pulse Oximetry 95 Oxygen Delivery Me thod Room Air OB - DS: Summary Hospital Course Hospital Course: Lynn is a 30 y.o. G 1 P 1001 who was admitted to [facility] for PPROM.? She had a VAVD that was complicated by hemorrhage. The patient feels well.? The pain is well controlled with current medications.? She has no new complaints.? She is breast feeding and reports things are going well this evening. the patient has done well.? Vitals have been stable.? She has remained afebrile.? Has a good appetite, is tolerating a general diet.? She is voiding without difficulty.? She is passing gas and has not had a bowel movement.? She is ambulating and denies any dizziness.? Has small amount of rubra lochia. ?? Problems: ? ?? plan:? Discharge home with baby.? Follow up in 2 weeks and 6 weeks.? , may see if needed? Hgb 8.8. Increased iron in diet recommended for improved recovery? Labs WNL or stable with trending?? Call for signs/symptoms of preeclampsia? Peripartum Data delivery method: Vacuum Laceration description: Perineal - 1st Degree Episiotomy description: Midline complications: other (Did have a PP hemorrhage due to uterine atony) Gender: Male Infant Discharge Plan: Baby not yet discharged Status at Discharge Functional status at discharge: independent ambulation Overall status at discharge: patient is progressing back to baseline Time Spent with Patient Time attestation: Total time spent providing and/or coordinating discharge services: Time spent: Less than 30 minutes Discharge Plan Discharge Disposition: Home, Self-Care Date of Admission: 06/21/25 03:08 Attending Provider on Discharge: Marisol Hutchins Consulting Providers: Melvina Ohara Primary Care Provider: Provider,Not a Local Condition: Stable Anticipated Discharge Date/Time: 06/23/25 19:55 Discharge Medications: Continued Fish Oil 100-160-1,000 mg capsule 1 cap PO DAILY cholecalciferol (vitamin D3) 50 mcg (2,000 unit) capsule 50 mcg PO QDAY Saccharomyces boulardii [Daily Probiotic (S. boulardii)] 250 mg capsule 250 mg PO BID gabapentin 100 mg capsule 100 mg PO QHS PRN magnesium citrate 100 mg capsule 100 mg PO QDAY One-A-Day -1 27 mg iron- 800 mcg-235 mg capsule 1 cap PO DAILY sertraline 50 mg tablet 50 mg PO DAILY Discontinued valacyclovir 500 mg tablet 500 mg PO BID Qty: 60 0RF hydroxyzine HCl 50 mg tablet 50 mg PO QPM PRN (Reason: insomnia) Discharge Orders: Discharge Order (Routine); Ordered 06/23/25 Ordered By: Marisol Hutchins Patient Education: OB Over the Counter Medication Information, OB Vaginal/Breast Feeding Additional Instructions: Discharge instructions were reviewed with the patient including signs and symptoms of infection and home going medications Nothing vaginally for 6 weeks: no tampons or intercourse Do not drive while taking narcotic pain medication(s) Off Work or School for 6 weeks Symptoms to report to doctor: * Bleeding that saturates more than one pad per hour * Passing clots larger than the size of a golf ball * Pain not relieved by prescribed medication * Fever above 100.4 degrees Fahrenheit * A foul vaginal odor * Difficulty in emotions, mood, and functions * Thoughts of hurting yourself and/or * Painful, reddened area in your breast * Any drainage, redness, or tenderness in your IV/epidural site * Severe headache that doesn't improve after taking medications * Changes in vision, including temporary loss of vision, blurred vision, and/or light sensitivity * Upper abdominal pain (usually under ribs on the right side) * Decrease in urination or painful, frequent urinating * Chest pain * Shortness of breath * Tenderness or pain with redness and/swelling in the calf(s) of your leg 2-week visit: discuss feeding concerns, review control options and screen for anxiety/depression. 6-week visit for an annual exam. consultation services are available to all mothers and babies for the first year after delivery.? To make an appointment, please call [phone]. Activity Level: Activity as Tolerated and No strenuous activity Discharge Diet: Regular Follow Up Appointments: [facility] [Provider Group] Forms: Patient Belongings, MyHealth Info Instructions
[2025-06-23 20:17] VITALS: BP 111/68; PULSE 75; RESP 16; TEMP 36.9; O2SAT 97
== END 2025-06-23 20:35 | disposition home or self-care (01) | DRG 560 ==
LOC: OB OUT 03:08 → OB 03:08
PROVIDERS: Advanced Practice Midwife; Admitting Provider Advanced Practice Midwife; Visit Provider Advanced Practice Midwife
DX: O42.013 Preterm premature rupture of membranes, onset of labor within 24 hours of rupture, third trimester (principal); O63.1 Prolonged second stage (of labor); O72.1 Other immediate postpartum hemorrhage; O70.0 First degree perineal laceration during delivery; Z91.410 Personal history of adult physical and sexual abuse; O99.344 Other mental disorders complicating childbirth; F41.9 Anxiety disorder, unspecified; F32.A Depression, unspecified; F90.9 Attention-deficit hyperactivity disorder, unspecified type; Z82.79 Family history of other congenital malformations, deformations and chromosomal abnormalities; O98.32 Other infections with a predominantly sexual mode of transmission complicating childbirth; A60.00 Herpesviral infection of urogenital system, unspecified; Z37.0 Single live birth; Z3A.36 36 weeks gestation of pregnancy
CPT/HCPCS: 01967; 36415; 76815; 84112; 85018; 85025; 86592; 86850; 86900; 86901; 87081; 87653; 88307; A9270; J2405; J2795; J3010; J7120

== ENCOUNTER 2025-08-08 13:32 | Outpatient (CLI) | payer BC, SELFPAY ==
[2025-08-08 18:31] LABS: Bacterial Vaginosis* Negative (Negative); Candida glab/krus NOT DETECTED (No Detected)
[2025-08-10 22:24] LABS: HPV Source Cervical
[2025-08-12 10:40] LABS: Pap Test Digital Imaging Done
== END 2025-08-08 13:33 | disposition home or self-care (01) ==
PROVIDERS: Visit Provider Advanced Practice Midwife
DX: N93.9 Abnormal uterine and vaginal bleeding, unspecified (principal); Z12.4 Encounter for screening for malignant neoplasm of cervix
CPT/HCPCS: 81513; 87481; 87624; 87625; 87661; 88141; 88142; 88175